=== PATIENT | female | born 1945 ===

== ENCOUNTER 2018-07-22 09:00 | Emergency (ER) | payer OTHER ==
[~2018-07-22] VITALS: Ht 157.5 cm; Wt 58.5 kg
[~2018-07-22 09:00] MED LIST: FOLIC ACID0.4 MG; IMODIUM A-D2 MG PO; METHOTREXATE25 MG/ML IJ; ORENCIA 25250 MG/VIA; PEPCID40 MG PO; PREDNISOLONE5 GM MC; SEPTRA DS TABLE1 TAB PO; URIN D.S. TABLE1 TAB PO; ZOFRAN4 MG PO
== END 2018-07-22 13:10 | disposition home or self-care (01) ==
LOC: ER 09:00
DX: S20.222A Contusion of left back wall of thorax, initial encounter (principal); S20.221A Contusion of right back wall of thorax, initial encounter; W10.8XXA Fall (on) (from) other stairs and steps, initial encounter; Y93.89 Activity, other specified; Y92.89 Other specified places as the place of occurrence of the external cause; Y99.8 Other external cause status; B34.9 Viral infection, unspecified

== ENCOUNTER 2019-05-14 07:37 | Outpatient (CLI) | payer OTHER | END 2019-05-14 07:38 | disposition home or self-care (01) | LOC: TOM 07:37 | DX: K56.600 Partial intestinal obstruction, unspecified as to cause (principal) ==